=== PATIENT | female | born 1965 | race Caucasian/White ===

== ENCOUNTER 2017-08-14 18:47 | Emergency (ER) | payer MEDICAID ==
[2017-08-14] MEDS ORDERED: LIDOCAINE 5% 1 EA PATCH TD ONE (18:56)
[2017-08-14 18:59] VITALS: BP 154/90; PULSE 65; RESP 18; TEMP 98.6; O2SAT 93
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
[2017-08-14] MEDS ORDERED: PATCH REMOVAL 1 EA PATCH TD SCH (21:00)
== END 2017-08-14 19:16 | disposition home or self-care (01) ==
LOC: EDUNIT#
DX: M54.5 Low back pain (principal); F17.200 Nicotine dependence, unspecified, uncomplicated

== ENCOUNTER 2017-08-16 19:29 | Emergency (ER) | payer MEDICAID ==
[2017-08-16 19:37] VITALS: BP 175/107; PULSE 66; RESP 17; TEMP 97.9; O2SAT 95
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
== END 2017-08-16 20:06 | disposition home or self-care (01) ==
LOC: EDUNIT#
DX: M54.9 Dorsalgia, unspecified (principal); F17.200 Nicotine dependence, unspecified, uncomplicated